=== PATIENT | female | born 1975 | race Caucasian/White ===

== ENCOUNTER 2023-07-27 13:02 | Emergency (ER) | payer MEDICAID ==
[~2023-07-27] VITALS: Ht 167.6 cm; Wt 91.0 kg
[2023-07-27 13:03] VITALS: TEMP 98.3; O2SAT 100
[2023-07-27] MEDS: DIPHENHYDRAMINE 50MG/ML VIAL IV ONE (13:48)
[2023-07-27] MEDS: KETOROLAC 30MG/ML VIAL IV STA (13:48)
[2023-07-27 13:49] LABS: CHLORIDE 104 mEq/L (98-107); POTASSIUM 4.3 mEq/L (3.5-5.1); SODIUM 139 mEq/L (136-145)
[2023-07-27] MEDS: SODIUM CHLORIDE 0.9% 1,000 ML IV ONE (13:49)
[2023-07-27] MEDS: METOCLOPRAMIDE HCL 10MG/2ML VIAL IV ONE (13:49)
[2023-07-27 13:50] LABS: BASOPHILS % 0.5 % (0.0-2.0); CARBON DIOXIDE 26 mEq/L (21-32); HEMATOCRIT. 32.8 % (36.0-48.0); MEAN CORPUSCULAR HEMOGLOBIN 27.3 pg (28.0-32.0); MEAN CORPUSCULAR HGB CONC 33.6 g/dL (31.0-37.0); MEAN CORPUSCULAR VOLUME 81.1 fL (81.0-99.0); MEAN PLATELET VOLUME 7.7 fl (7.4-10.4); MONOCYTES % 7.6 % (2.0-8.0); NEUTROPHILS % 58.9 % (40.0-76.0); PLATELET 321 x1000/uL (130-400); RED BLOOD CELL COUNT 4.04 mill/uL (4.2-5.4); WHITE BLOOD COUNT 7.5 x1000/uL (4.5-11.0)
[2023-07-27 13:51] LABS: CALCIUM 9.5 mg/dL (8.7-10.4)
[2023-07-27 13:53] LABS: CLARITY URINE CLEAR (CLEAR); COLOR URINE YELLOW (YELLOW); GLUCOSE URINE NEGATIVE (NEGATIVE); KETONES URINE NEGATIVE (NEGATIVE); LEUKOCYTE ESTERASE URINE 2+ (NEGATIVE); NITRITE URINE NEGATIVE (NEGATIVE); OCCULT BLOOD URINE TRACE (NEGATIVE); PROTEIN URINE NEGATIVE (NEGATIVE); SPECIFIC GRAVITY URINE 1.004 (1.005-1.030); UROBILINOGEN URINE 0.2 E.U./dL (0.2-1.0)
[2023-07-27 13:55] LABS: CREATININE 0.8 mg/dL (0.6-1.0); GLUCOSE 220 mg/dL (70-105); UREA NITROGEN BLOOD 11 mg/dL (9-23)
[2023-07-27 13:59] LABS: TROPONIN I HIGH SENSITIVITY < 4 ng/L (3.0-34)
[2023-07-27 14:26] LABS: SQUAMOUS EPITHELIAL CELL URINE 1+ /lpf (RARE/1+)
[2023-07-27 14:27] LABS: BACTERIA URINE TRACE; RBC URINE NONE SEEN /hpf (0-2); YEAST URINE NONE SEEN
[2023-07-27] MEDS: CEFTRIAXONE 1GM/50ML 50 ML IV ONE (15:00)
[2023-07-27] MEDS ORDERED: NITR-87 MT (15:26)
[2023-07-27 15:51] VITALS: BP 121/64; PULSE 87; RESP 16
== END 2023-07-27 15:54 | disposition home or self-care (01) ==
LOC: ER 13:02
DX: G43.909 Migraine, unspecified, not intractable, without status migrainosus (principal); N39.0 Urinary tract infection, site not specified; E11.9 Type 2 diabetes mellitus without complications; I10 Essential (primary) hypertension; Z88.0 Allergy status to penicillin
CPT/HCPCS: 80048; 81003; 82962; 85025; 84484; 36415; 71045; 70450; 93005; 96361; 96365; 96375; 99285; J0696; J1200; J1885; J2765; J7030; Z7610